=== PATIENT | female | born 1985 | race American Indian/Alaskan Native ===

== ENCOUNTER 2019-11-19 22:16 | Outpatient (CLI) | payer MEDICAID ==
[2019-11-19] MEDS ORDERED: LACTATED RINGERS 500 ML IV ONE (23:00)
[2019-11-19 23:14] VITALS: BP 130/61
[2019-11-19 23:57] LABS: Bilirubin,Urine NEG (Negative); Blood,Urine NEG (Negative); Color,Urine Yellow (Yellow); Mucus,Urine FEW /HPF; Protein,Urine <15 mg/dL mg/dL (Negative); Urobilinogen,Urine < 2.0 mg/dL (<2.0); WBC,Urine < 1.0 /HPF (0.0-6.0)
[2019-11-20] MEDS ORDERED: SIMETHICONE 80 MG CHEW TAB PO PRN (00:28)
== END 2019-11-20 01:20 | disposition home or self-care (01) ==
LOC: TRG 22:16 → APU 22:17 → TRG 11-20 01:20
PROVIDERS: ATTEND Obstetrics & Gynecology
DX: O26.892 Other specified pregnancy related conditions, second trimester (principal); R10.9 Unspecified abdominal pain; Z3A.26 26 weeks gestation of pregnancy
CPT/HCPCS: 59025; 81001